=== PATIENT | female | born 1970 | race Caucasian/White ===

== ENCOUNTER → 2025-01-01 14:01 | Outpatient (CLI) | payer OTHER, SELFPAY | PROVIDERS: Visit Provider Nurse Practitioner Family | DX: R39.15 Urgency of urination (principal) | CPT/HCPCS: 87086 ==

== ENCOUNTER → 2025-05-03 14:38 | Outpatient (CLI) | payer OTHER, SELFPAY | PROVIDERS: Visit Provider Chiropractor | DX: R30.0 Dysuria (principal) | CPT/HCPCS: 87077; 87086 ==

== ENCOUNTER → 2025-08-05 17:02 | Outpatient (CLI) | payer OTHER, SELFPAY ==
[2025-08-05 18:08] LABS: Lymphocytes Absolute Auto 1700 /uL (1100-4500)
[2025-08-05 18:11] LABS: Add Manual Diff / Slide Review NO; Hematocrit 40.0 % (36-46); Hemoglobin 13.8 g/dL (12.0-16.0); Mean Corpuscular HGB Conc 34.5 % (30-36); Mean Corpuscular Hemoglobin 29.5 PG (26-34); Mean Corpuscular Volume 85.6 fL (80-100); Platelet Count 330 X10^3/uL (150-400)
[2025-08-05 18:51] LABS: Blood Urea Nitrogen 17 mg/dL (7-17); Calcium 9.3 mg/dL (8.4-10.2); Carbon Dioxide 28 mmol/L (22-32); Chloride 103 mmol/L (98-107); Estimated Glomerular Filt Rate > 60 mL/min (>60); Glucose 104 mg/dL (70-99); HEMOLYSIS < 15 (0-50); Potassium 3.9 mmol/L (3.4-5.1); Sodium 140 mmol/L (137-145)
== END ==
PROVIDERS: Referring Provider Plastic Surgery; Visit Provider Plastic Surgery
DX: Z01.818 Encounter for other preprocedural examination (principal)
CPT/HCPCS: 36415; 80048; 85025